=== PATIENT | female | born 1975 | race American Indian/Alaskan Native ===

== ENCOUNTER 2018-05-08 08:58 | Outpatient (CLI) | payer BC | END 2018-05-08 08:59 | disposition home or self-care (01) | LOC: RAD 08:58 | DX: Z12.31 Encounter for screening mammogram for malignant neoplasm of breast (principal) ==

== ENCOUNTER 2018-06-23 09:23 | Outpatient (CLI) | payer BC | END 2018-06-23 09:24 | disposition home or self-care (01) | LOC: RAD 09:23 | DX: N30.90 Cystitis, unspecified without hematuria (principal) ==

== ENCOUNTER 2018-07-02 14:02 | Outpatient (CLI) | payer BC | END 2018-07-02 14:03 | disposition home or self-care (01) | LOC: RAD 14:02 ==